=== PATIENT | female | born 1985 | race Caucasian/White ===

== ENCOUNTER 2022-03-19 09:46 | Emergency (ER) | payer MEDICAID ==
[~2022-03-19] VITALS: Ht 162.6 cm; Wt 115.2 kg
[2022-03-19 10:22] VITALS: BP 161/93
--- NOTE | 2022-03-19 10:34 | NUR ---
COVID STEPHANI SWAB DONE.
[2022-03-19] MEDS ORDERED: ACETAMINOPHEN 325 MG TAB PO ONE (12:40)
[2022-03-19] MEDS ORDERED: NACL 0.9% 1,000 ML IV ONE (12:40)
--- NOTE | 2022-03-19 13:19 | NUR ---
PT C/O ABDOMINAL PAIN AND SORE THROAT X2 DAYS. IV INSERTED TO LEFT AC #20GUAGE MEDICATED PER ORDER. FLUIDS INFUSING PER ORDER
[2022-03-19] MEDS ORDERED: ALUMINUM HYD/MAG/SIMETHICONE 30 ML UDC PO ONE (13:40)
[2022-03-19 13:57] LABS: ALBUMIN 3.4 g/dL (3.4-5.0); ANION GAP 12.2 (8-16); ASPARTATE AMINOTRANSFERASE 17 U/L (15-37); CARBON DIOXIDE 27.5 mmol/L (21-32); CHLORIDE 102 mmol/L (98-107); CREATININE 0.7 mg/dL (0.6-1.3); GFR ARICAN-AMERICAN 122 mL/min (>90); GLUCOSE 90 mg/dL (74-106); LIPASE 103 U/L (73-393); POTASSIUM 3.7 mmol/L (3.5-5.1); SODIUM SERUM 138 mmol/L (136-145); TOTAL BILIRUBIN 0.3 mg/dL (0.0-1.0); UREA NITROGEN, BLOOD 10 mg/dL (7-18)
[2022-03-19 14:14] LABS: BASOPHILS % (AUTO) 0.3 % (0.0-2.0); EOSINOPHILS # (AUTO) 0.4 K/uL (0-0.4); EOSINOPHILS % (AUTO) 3.8 % (0.0-4.0); HEMATOCRIT 40.7 % (36-48); LYMPHOCYTES % (AUTO) 30.1 % (20.5-51.1); MEAN CORPUSCULAR HEMOGLOBIN 26 pg (27-31); MEAN CORPUSCULAR HGB CONC 32 g/dL (33-37); MEAN CORPUSCULAR VOLUME 79.9 fL (80-94); MONOCYTES # (AUTO) 0.7 K/uL (0.8-1.0); MONOCYTES % (AUTO) 7.2 % (1.7-9.3); NEUTROPHILS # (AUTO) 5.9 K/uL (1.8-7.7); NEUTROPHILS % (AUTO) 58.6 % (42.2-75.2); PLATELET COUNT (AUTO) 345 K/uL (140-450); RED BLOOD CELL COUNT(AUTO) 5.09 MIL/uL (4.20-5.40); RED CELL DISTRIBUTION WIDTH 15.3 % (11.6-13.7); WHITE BLOOD COUNT (AUTO) 10.1 K/uL (4.8-10.8)
[2022-03-19] MEDS ORDERED: POLY17PD72 PO (14:59)
[2022-03-19 16:01] VITALS: BP 122/70
== END 2022-03-19 16:02 | disposition home or self-care (01) ==
LOC: MED 09:46
DX: R10.84 Generalized abdominal pain (principal); Z20.822 Contact with and (suspected) exposure to COVID-19; R05.9 Cough, unspecified; J34.89 Other specified disorders of nose and nasal sinuses; Z98.890 Other specified postprocedural states
CPT/HCPCS: 36415; 71045; 80053; 81002; 81025; 83690; 84484; 85025; 87426; 93005; 96360; 99285; J7030

== ENCOUNTER 2022-08-25 19:44 | Emergency (ER) | payer MEDICAID ==
[~2022-08-25] VITALS: Ht 167.6 cm; Wt 119.7 kg
[~2022-08-25 19:44] MED LIST: POLY17PD72 PO
[2022-08-25 19:55] VITALS: BP 142/94
--- NOTE | 2022-08-25 20:00 | NUR ---
PT TO BED 11
--- NOTE | 2022-08-25 20:07 | NUR ---
Dr. Melgar examining patient.
--- NOTE | 2022-08-25 20:24 | NUR ---
X-Ray at bedside.
[2022-08-25] MEDS ORDERED: CLIN300C2 PO (21:15)
[2022-08-25 21:21] VITALS: BP 132/94
--- NOTE | 2022-08-25 21:21 | NUR ---
Patient discharged with v/s stable. Written and verbal after care instructions given and explained. Patient alert, oriented and verbalized understanding of instructions. Ambulatory with steady gait. All questions addressed prior to discharge. ID band removed. Patient advised to follow up with PMD. Rx of Clindamycin HCL given. Patient educated on indication of medication including possible reaction and side effects. Opportunity to ask questions provided and answered.
== END 2022-08-25 21:21 | disposition home or self-care (01) ==
LOC: MED 19:44
DX: M79.675 Pain in left toe(s) (principal); Z79.899 Other long term (current) drug therapy; Z98.890 Other specified postprocedural states
CPT/HCPCS: 73630; 99283; Q0092

== ENCOUNTER 2022-11-10 13:29 | Emergency (ER) | payer MEDICAID ==
[~2022-11-10] VITALS: Ht 157.5 cm; Wt 122.0 kg
[~2022-11-10 13:29] MED LIST changes: +CLIN300C2 PO
[2022-11-10 14:19] VITALS: BP 131/85
[2022-11-10 14:47] LABS: APPEARANCE,URINE CLEAR (CLEAR); BILIRUBIN,URINE NEGATIVE (NEGATIVE); BLOOD, URINE NEGATIVE (NEGATIVE); COLOR,URINE YELLOW (YELLOW); LEUKOCYTE ESTERASE ,URINE NEGATIVE (NEGATIVE); NITRITE, URINE NEGATIVE (NEGATIVE); PH,URINE 7.5 (5.0-9.0); UGLUCOSE NEGATIVE (NEGATIVE)
--- NOTE | 2022-11-10 14:56 | NUR ---
AMB. TO BED 2, NO ACUTE DISTRESS
[2022-11-10 15:10] LABS: BASOPHILS % (AUTO) 0.5 % (0.0-2.0); EOSINOPHILS # (AUTO) 0.2 K/uL (0-0.4); HEMATOCRIT 36.7 % (36-48); HEMOGLOBIN 11.9 g/dL (12.0-16.0); LYMPHOCYTES # (AUTO) 2.5 K/uL (2.5-16.5); LYMPHOCYTES % (AUTO) 26.8 % (20.5-51.1); MEAN CORPUSCULAR HEMOGLOBIN 26 pg (27-31); MEAN CORPUSCULAR HGB CONC 33 g/dL (33-37); MEAN CORPUSCULAR VOLUME 79.1 fL (80-94); MONOCYTES # (AUTO) 0.5 K/uL (0.8-1.0); MONOCYTES % (AUTO) 5.2 % (1.7-9.3); NEUTROPHILS % (AUTO) 65.5 % (42.2-75.2); PLATELET COUNT (AUTO) 347 K/uL (140-450); RED BLOOD CELL COUNT(AUTO) 4.63 MIL/uL (4.20-5.40); RED CELL DISTRIBUTION WIDTH 16.6 % (11.6-13.7); WHITE BLOOD COUNT (AUTO) 9.2 K/uL (4.8-10.8)
[2022-11-10] MEDS ORDERED: HYDROcodone/APAP 5/325 MG 1 TAB TAB PO ONE (15:15)
--- NOTE | 2022-11-10 15:16 | NUR ---
37 yo/f presents to ED w c/o RLQ abdominal pain radiating to R 10/10 sharp x1 day, +n/v/d. denies fevers, chills, vaginal bleedin or discharge. had + preg test in ED. pmh:possible sleep apnea allergies: denies
--- NOTE | 2022-11-10 15:22 | NUR ---
VERIFIED WITH MARCELINO WALL ORDER FOR PT NORCO, PER MARCELINO WALL OK TO GIVE PT NORCO "SAFE IN ."
[2022-11-10 15:42] LABS: ALBUMIN 3.1 g/dL (3.4-5.0); ANION GAP 8.1 (8-16); CARBON DIOXIDE 28.8 mmol/L (21-32); CREATININE 0.7 mg/dL (0.6-1.3); POTASSIUM 3.9 mmol/L (3.5-5.1); TOTAL BILIRUBIN 0.2 mg/dL (0.0-1.0)
--- NOTE | 2022-11-10 15:51 | NUR ---
PT REPORT TO MORGAN HACKETT
[2022-11-10] MEDS ORDERED: ACET-10509 PO (17:22)
[2022-11-10] MEDS ORDERED: CYCL-711 PO (17:22)
[2022-11-10] MEDS ORDERED: METO-485 PO (17:27)
[2022-11-10 17:30] VITALS: BP 126/78
--- NOTE | 2022-11-10 17:30 | NUR ---
Patient discharged with v/s stable. Written and verbal after care instructions given and explained. Patient alert, oriented and verbalized understanding of instructions. Ambulatory with steady gait. All questions addressed prior to discharge. ID band removed. Patient advised to follow up with PMD. Rx of REGLAN, FLEXERIL AND TYLENOL given. Patient educated on indication of medication including possible reaction and side effects. Opportunity to ask questions provided and answered.
== END 2022-11-10 17:30 | disposition home or self-care (01) ==
LOC: MED 13:29
DX: O26.891 Other specified pregnancy related conditions, first trimester (principal); R10.9 Unspecified abdominal pain; Z3A.09 9 weeks gestation of pregnancy; Z79.899 Other long term (current) drug therapy; Z87.442 Personal history of urinary calculi; Z98.890 Other specified postprocedural states
CPT/HCPCS: 36415; 76705; 76801; 80053; 81003; 81025; 83690; 85025; 99284; Q0092

== ENCOUNTER 2023-08-18 11:56 | Emergency (ER) | payer MEDICAID ==
[~2023-08-18] VITALS: Ht 157.5 cm; Wt 115.2 kg
[~2023-08-18 11:56] MED LIST changes: +ACET-10509 PO; +CYCL-711 PO; +METO-485 PO
[2023-08-18 12:03] VITALS: BP 125/91; PULSE 88; RESP 16; TEMP 98.1; O2SAT 95
[2023-08-18] MEDS ORDERED: AMOX500C25 PO (12:42)
[2023-08-18] MEDS ORDERED: IBUP-1842 PO (12:42)
[2023-08-18] MEDS ORDERED: FAMO-92 PO (12:42)
[2023-08-18] MEDS ORDERED: SUD30 PO (12:42)
[2023-08-18 14:06] LABS: FLU A ANTIGEN negative (NEGATIVE); FLU B ANTIGEN NEGATIVE (NEGATIVE)
== END 2023-08-18 12:45 | disposition home or self-care (01) ==
LOC: MED 11:56
DX: H66.93 Otitis media, unspecified, bilateral (principal); Z20.822 Contact with and (suspected) exposure to COVID-19; J06.9 Acute upper respiratory infection, unspecified
CPT/HCPCS: 99283

== ENCOUNTER 2023-11-02 20:03 | Emergency (ER) | payer MEDICAID ==
[~2023-11-02] VITALS: Ht 167.6 cm; Wt 120.7 kg
[~2023-11-02 20:03] MED LIST changes: +AMOX500C25 PO; +FAMO-92 PO; +IBUP-1842 PO; +SUD30 PO
[2023-11-02 20:43] VITALS: BP 135/85; PULSE 75; RESP 20; TEMP 98.1; O2SAT 98
[2023-11-02] MEDS ORDERED: ACET-10509 PO (21:39)
[2023-11-02] MEDS ORDERED: AMOX500C25 PO (21:39)
[2023-11-02] MEDS: ACETAMINOPHEN EXTRA STRENGTH 500 MG TAB PO ONE (21:47)
[2023-11-02 22:55] LABS: FLU A ANTIGEN negative (NEGATIVE); FLU B ANTIGEN NEGATIVE (NEGATIVE)
== END 2023-11-02 21:53 | disposition home or self-care (01) ==
LOC: MED 20:03
DX: J02.9 Acute pharyngitis, unspecified (principal); Z20.822 Contact with and (suspected) exposure to COVID-19; Z79.899 Other long term (current) drug therapy
CPT/HCPCS: 87081; 99283

== ENCOUNTER 2024-01-17 20:10 | Emergency (ER) | payer MEDICAID ==
[~2024-01-17] VITALS: Ht 157.5 cm; Wt 120.7 kg
[2024-01-17 20:14] VITALS: BP 132/104; PULSE 74; RESP 18; TEMP 97.2; O2SAT 98
[2024-01-17] MEDS ORDERED: CEPH-588 PO (22:09)
[2024-01-17] MEDS ORDERED: NAPR-337 PO (22:09)
== END 2024-01-17 22:10 | disposition home or self-care (01) ==
LOC: MED 20:10
DX: L03.032 Cellulitis of left toe (principal); Z79.1 Long term (current) use of non-steroidal anti-inflammatories (NSAID); Z79.2 Long term (current) use of antibiotics; Z79.899 Other long term (current) drug therapy
CPT/HCPCS: 99283

== ENCOUNTER 2024-03-17 10:07 | Emergency (ER) | payer MEDICAID ==
[~2024-03-17] VITALS: Ht 167.6 cm; Wt 119.3 kg
[~2024-03-17 10:07] MED LIST changes: -ACET-10509 PO; +ACET500T99 PO; +CEPH-588 PO; +NAPR-337 PO
[2024-03-17 10:30] VITALS: BP 125/92; PULSE 81; RESP 18; TEMP 98.4; O2SAT 100
[2024-03-17] MEDS: LIDOCAINE MPF 1% 10 MG/ML VIAL INJ ONE (10:53)
[2024-03-17] MEDS: BACITRACIN OINT 500 UNITS/GM PKT TP ONE (10:53)
[2024-03-17 11:17] VITALS: BP 125/92; PULSE 81; RESP 18; TEMP 98.4; O2SAT 100
[2024-03-17] MEDS ORDERED: BACI-418 TP (11:38)
[2024-03-17] MEDS ORDERED: IBUP-2213 PO (11:38)
== END 2024-03-17 11:46 | disposition home or self-care (01) ==
LOC: MED 10:07
DX: L60.0 Ingrowing nail (principal); Z79.899 Other long term (current) drug therapy
CPT/HCPCS: 11730; 99284; J2001